=== PATIENT | male | born 1995 | race Caucasian/White ===

== ENCOUNTER 2024-01-23 09:08 | Emergency (ER) | payer MEDICAID, SELFPAY ==
[2024-01-23 09:09] VITALS: BP 149/90; PULSE 101; RESP 16; TEMP 36.5; O2SAT 98; BMI 23.3
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
== END 2024-01-23 09:36 | disposition home or self-care (01) ==
LOC: ED 09:36
PROVIDERS: Emergency Provider Emergency Medicine; Visit Provider Emergency Medicine
DX: S16.1XXA Strain of muscle, fascia and tendon at neck level, initial encounter (principal); F41.9 Anxiety disorder, unspecified; V89.2XXA Person injured in unspecified motor-vehicle accident, traffic, initial encounter
CPT/HCPCS: 99282